=== PATIENT | male | born 1995 | race African-American/Black ===

== ENCOUNTER 2019-06-14 06:08 | Emergency (ER) | payer SELFPAY ==
--- NOTE | 2019-06-14 06:36 | NUR ---
PT CALLED X 3 OVER 30 MIN WITH NO ANSWER. PT WAS SEEN WALKING OUT AND IN THE DIRECTION OF THE PARKING LOT.
== END 2019-06-14 06:39 | disposition left against medical advice (07) ==
LOC: ED 06:33
DX: Z53.21 Procedure and treatment not carried out due to patient leaving prior to being seen by health care provider (principal)